=== PATIENT | female | born 1950 | race Two or more races ===

== ENCOUNTER 2020-05-21 08:30 | Inpatient (IN) | payer OTHER ==
[~2020-05-21] VITALS: Ht 152.4 cm; Wt 81.6 kg
[2020-05-21] MEDS ORDERED: LEVO-T25 MCG PO (09:41)
[2020-05-21] MEDS ORDERED: ZOCOR20 MG PO (09:41)
[2020-05-21] MEDS ORDERED: TENORMIN100 M1 PO (10:13)
[2020-05-21] MEDS ORDERED: IRBESARTAN-HCT1 EACH PO (10:13)
[2020-05-21] MEDS ORDERED: METFORMIN HCL500 M3 PO (10:14)
[2020-05-27] MEDS ORDERED: LIPO-FLAVONOID1 EACH (08:22)
[2020-05-27] MEDS ORDERED: BETAMETHASONE D30 ML (09:07)
[2020-05-27] MEDS ORDERED: CLOTRIMAZOLE-BE15 G1 (09:07)
[2020-05-27] MEDS ORDERED: PRESERVISION A1 EAC1 (09:07)
[2020-05-27] MEDS ORDERED: REFRESH OPTIVE10 M1 (09:07)
[2020-05-27] MEDS ORDERED: CLOBETASOL PROP15 GM (09:07)
[2020-05-27] MEDS ORDERED: TRIAMCINOLONE A15 G3 (09:08)
[2020-05-27] MEDS ORDERED: ANTACID ANTI-G355 ML (09:08)
[2020-05-27] MEDS ORDERED: CORTIZONE-1028 GM (09:08)
[2020-05-27] MEDS ORDERED: GENTEAL TEARS 015 ML (09:08)
[2020-05-27] MEDS ORDERED: GLUCOSE4 GM (09:09)
== END 2020-05-29 15:28 | DRG 470 ==
LOC: ADM 08:30 → EDSTATUS 08:30 → O/R 05-27 06:25 → SURG 05-27 06:25 → SURH 05-27 08:30 → SURG 05-27 13:23
PROVIDERS: ADMIT Orthopaedic Surgery; ATTEND Orthopaedic Surgery
PROC: 0SRC0J9 Replacement of Right Knee Joint with Synthetic Substitute, Cemented, Open Approach (ICD-10-PCS; principal; 2020-05-27 10:00)
DX: M17.11 Unilateral primary osteoarthritis, right knee (principal); D62 Acute posthemorrhagic anemia; I10 Essential (primary) hypertension; E11.9 Type 2 diabetes mellitus without complications; Z79.84 Long term (current) use of oral hypoglycemic drugs